=== PATIENT | male | born 1945 | race Hispanic/Latino ===

== ENCOUNTER 2017-08-03 14:27 | Emergency (ER) | payer MEDICARE, OTHER ==
[2017-08-03] MEDS ORDERED: BENZONATATE 100 MG CAPSULE PO ONE (15:05)
[2017-08-03] MEDS ORDERED: ACETAMINOPHEN EXTRA STRENGTH 500 MG TABLET ONE (15:06)
[2017-08-03 15:41] LABS: BASOPHILS % (AUTO) 0.4 % (0.0-5.0); EOSINOPHILS % (AUTO) 0.1 % (0.0-8.0); LYMPHOCYTES % (AUTO) 9.1 % (21.0-51.0); MEAN CORPUSCULAR HEMOGLOBIN 29.6 pg (27.0-33.0); MEAN CORPUSCULAR HGB CONC 33.7 g/dL (32.0-36.0); MONOCYTES % (AUTO) 11.9 % (3.0-13.0); NEUTROPHILS % (AUTO) 78.5 % (40.0-77.0); PLATELET COUNT (AUTO) 218 K/uL (130-400); RED BLOOD CELL COUNT(AUTO) 4.88 MIL/uL (4.50-6.20); RED CELL DISTRIBUTION WIDTH 13.4 % (11.0-15.5); WHITE BLOOD COUNT (AUTO) 8.1 K/uL (4.8-10.8)
[2017-08-03 16:11] LABS: CREATININE 1.2 mg/dL (0.5-1.5); POTASSIUM 3.6 mmol/L (3.5-5.1)
[2017-08-03] MEDS ORDERED: OSELTAMIVIR PHOSPHATE 75 MG CAP ONE (16:18)
== END 2017-08-03 16:46 | disposition home or self-care (01) ==
LOC: EDH 14:27
DX: J10.1 Influenza due to other identified influenza virus with other respiratory manifestations (principal); E11.9 Type 2 diabetes mellitus without complications; E78.5 Hyperlipidemia, unspecified
CPT/HCPCS: 36415; 71045; 80048; 85025; 87804

== ENCOUNTER 2018-07-09 19:20 | Emergency (ER) | payer MEDICARE, OTHER ==
[2018-07-09] MEDS ORDERED: KETOROLAC TROMETHAMINE 30MG/ML ONE (19:47)
[2018-07-09] MEDS ORDERED: DIAZEPAM 5 MG TABLET ONE (19:47)
[2018-07-09 19:50] LABS: BASOPHILS % (AUTO) 0.6 % (0.0-5.0); EOSINOPHILS % (AUTO) 0.7 % (0.0-8.0); HEMATOCRIT 44.7 % (42-54); MEAN CORPUSCULAR HEMOGLOBIN 29.6 pg (27.0-33.0); MEAN CORPUSCULAR HGB CONC 33.3 g/dL (32.0-36.0); MEAN CORPUSCULAR VOLUME 88.8 fL (79-99); MONOCYTES % (AUTO) 8.2 % (3.0-13.0); NEUTROPHILS % (AUTO) 66.5 % (40.0-77.0); NUCLEATED RED BLOOD CELLS 0.1 % (0.0-0.19); PLATELET COUNT (AUTO) 232 K/uL (130-400); RED BLOOD CELL COUNT(AUTO) 5.03 MIL/uL (4.50-6.20); RED CELL DISTRIBUTION WIDTH 13.3 % (11.0-15.5); WHITE BLOOD COUNT (AUTO) 11.4 K/uL (4.8-10.8)
[2018-07-09 20:13] LABS: CREATININE 1.2 mg/dL (0.5-1.5); POTASSIUM 3.8 mmol/L (3.5-5.1)
[2018-07-09 20:19] LABS: ALBUMIN 3.4 g/dL (3.5-5.0); BILIRUBIN,DIRECT 0.1 mg/dL (0.0-0.3); BILIRUBIN,TOTAL 0.4 mg/dL (0.2-1.0); TOTAL PROTEIN, SERUM 7.9 g/dL (6.0-8.3)
[2018-07-09 20:39] LABS: B-TYPE NATRIURETIC PEPTIDE 8 pg/mL (0-100)
== END 2018-07-09 22:06 | disposition home or self-care (01) ==
LOC: EDH 19:20
DX: M25.511 Pain in right shoulder (principal); E78.5 Hyperlipidemia, unspecified; E11.9 Type 2 diabetes mellitus without complications; Z98.890 Other specified postprocedural states
CPT/HCPCS: 36415; 71045; 80048; 80076; 83880; 84484; 85025; 93005; 96372; 99284; J1885 ×2

== ENCOUNTER 2020-06-30 11:03 | Inpatient (IN) | payer OTHER ==
[~2020-06-30] VITALS: Ht 180.3 cm; Wt 103.4 kg
[2020-06-30 11:45] LABS: BASOPHILS % (AUTO) 0.2 % (0.0-5.0); HEMATOCRIT 42.8 % (42-54); MEAN CORPUSCULAR HEMOGLOBIN 29.8 pg (27.0-33.0); MEAN CORPUSCULAR HGB CONC 33.9 g/dL (32.0-36.0); MEAN CORPUSCULAR VOLUME 88.1 fL (79-99); MONOCYTES % (AUTO) 2.9 % (3.0-13.0); NEUTROPHILS % (AUTO) 87.9 % (40.0-77.0); PLATELET COUNT (AUTO) 319 K/uL (130-400); RED BLOOD CELL COUNT(AUTO) 4.86 MIL/uL (4.50-6.20); RED CELL DISTRIBUTION WIDTH 12.6 % (11.0-15.5); WHITE BLOOD COUNT (AUTO) 9.4 K/uL (4.8-10.8)
[2020-06-30 12:07] LABS: ALANINE AMINOTRANSFERASE 25 U/L (12-78); ALBUMIN 2.5 g/dL (3.5-5.0); ASPARTATE AMINOTRANSFERASE 32 U/L (10-37); BILIRUBIN,TOTAL 0.8 mg/dL (0.2-1.0); CARBON DIOXIDE 21 mmol/L (21-32); CHLORIDE 96 mmol/L (101-111); CREATINE KINASE, TOTAL 63 U/L (21-232); CREATININE 1.5 mg/dL (0.5-1.5); GLOMERULAR FILTR. RATE CALC 49 mL/min (>60); LACTATE DEHYDROGENASE 326 U/L (81-234); MYOGLOBIN 125 ng/mL (10-92); POTASSIUM 3.9 mmol/L (3.5-5.1); SODIUM SERUM 136 mmol/L (136-145); TOTAL PROTEIN, SERUM 8.3 g/dL (6.0-8.3); TROPONIN I < 0.04 ng/mL (0.00-0.06); UREA NITROGEN, BLOOD 27 mg/dL (7-18)
[2020-06-30 12:21] LABS: INR 1.14 (0.85-1.15); PROTHROMBIN TIME 12.1 SEC (9.6-11.6)
[2020-06-30 12:22] LABS: PARTIAL THROMBOPLASTIN TIME 30.9 SEC (26.3-35.5)
[2020-06-30 12:33] LABS: GLUCOSE,RANDOM 545 mg/dL (70-105)
[2020-06-30] MEDS ORDERED: CEFTRIAXONE SODIUM 1 GM ONE (12:46)
[2020-06-30] MEDS ORDERED: AZITHROMYCIN 500MG+NS 250ML 250 ML IV ONE (12:46)
[2020-06-30] MEDS ORDERED: SODIUM CHLORIDE 0.9% 1000ML 1,000 ML IV ONE (12:48)
[2020-06-30] MEDS ORDERED: INSULIN HUMULIN R 100 UNIT/ML 3ML ONE (12:49)
[2020-06-30 12:55] LABS: ERYTHROCYTE SEDIMENTATION RATE 103 MM/HR (0-20)
[2020-06-30 13:26] LABS: ABG HCO3 20.9 mmol/L (21.0-28.0); ABG OXYGEN SATURATION 93.2 % (95.0-99.0); ABG PCO2 28 mmHg (35-48)
[2020-06-30 14:08] LABS: APPEARANCE,URINE Clear (CLEAR); BILIRUBIN,URINE Negative (NEGATIVE); COLOR,URINE Yellow (YELLOW); GLUCOSE, URINE (UA) >=1000 mg/dL (NEGATIVE); KETONES,URINE 15 mg/dL (NEGATIVE); LEUKOCYTE ESTERASE ,URINE Negative (NEGATIVE); NITRATE,URINE Negative (NEGATIVE); OCCULT BLOOD,URINE Negative (NEGATIVE); PROTEIN,URINE POS 1+ mg/dL (NEGATIVE)
[2020-06-30 14:20] LABS: BACTERIA,URINE Few /HPF (None Seen); RBC,URINE 0-1 /HPF (0-1); WBC,URINE 0-1 /HPF (0-1)
[2020-06-30 14:21] LABS: SQUAMOUS EPITHELIAL CELL,UR Few /HPF (0-2); YEAST,URINE BUDDING Rare /HPF (None Seen)
[2020-06-30] MEDS ORDERED: ERGOCALCIFEROL (VITAMIN D2) 50,000 UNIT CAPSULE PO ONE (14:45)
[2020-06-30] MEDS: FUROSEMIDE 10 MG/ML 4ML VIAL IVP SCH (14:45)
[2020-06-30] MEDS ORDERED: GLUCAGON 1MG KIT 1 MG ML IM PRN (14:45)
[2020-06-30] MEDS ORDERED: DIAZEPAM 5 MG TABLET PO PRN (14:45)
[2020-06-30] MEDS: DEXAMETHASONE SOD PHOSPHATE 4 MG/ML 1ML VIAL IVP SCH (14:45)
[2020-06-30] MEDS: CEFTRIAXONE SODIUM 1 GM IVP SCH (14:45)
[2020-06-30] MEDS ORDERED: ONDANSETRON HCL 4 MG/2 ML VIAL IVP PRN (14:45)
[2020-06-30] MEDS ORDERED: ALBUTEROL INHALER 90MCG/INH IH PRN (14:45)
[2020-06-30] MEDS ORDERED: HYDRALAZINE HCL 20 MG/ML VIAL IV PRN (14:45)
[2020-06-30] MEDS ORDERED: DEXTROSE 50%-WATER 50 ML DISP.SYRIN IV PRN (14:45)
[2020-06-30] MEDS ORDERED: MAGNESIUM 2GM PREMIX 50ML 50 ML IV PRN (14:45)
[2020-06-30] MEDS ORDERED: ACETAMINOPHEN 325 MG TAB PO PRN (14:45)
[2020-06-30] MEDS: DOXYCYCLINE 100MG+NS 250ML IV SCH (14:45)
[2020-06-30] MEDS ORDERED: PHARMACY COMMUNICATION**REMDESIVIR ORDER MISC SCH (15:00)
[2020-06-30] MEDS: INSULIN HUMULIN R 100 UNIT/ML 3ML SQ SCH ×2 (16:30→21:00)
[2020-06-30] MEDS: ENOXAPARIN SODIUM 100 MG/1 ML SQ SCH (21:00)
[2020-06-30] MEDS ORDERED: ENOXAPARIN SODIUM 120 MG/0.8ML SQ ONE (21:02)
[2020-06-30] MEDS ORDERED: FAMOTIDINE/PF 20 MG/2 ML VIAL IV ONE (21:48)
[2020-07-01] MEDS: CEFTRIAXONE SODIUM 1 GM IVP SCH ×2 (02:45→14:45)
[2020-07-01] MEDS: FUROSEMIDE 10 MG/ML 4ML VIAL IVP SCH ×2 (02:45→14:45)
[2020-07-01] MEDS: DOXYCYCLINE 100MG+NS 250ML IV SCH ×2 (02:45→14:45)
[2020-07-01 04:10] LABS: ABG BASE EXCESS 0.3 mmol/L (-2.0-3.0); ABG HCO3 23.8 mmol/L (21.0-28.0); ABG OXYGEN SATURATION 94.9 % (95.0-99.0); ABG PCO2 35 mmHg (35-48)
[2020-07-01 04:19] LABS: BASOPHILS % (AUTO) 0.2 % (0.0-5.0); EOSINOPHILS % (AUTO) 0.1 % (0.0-8.0); LYMPHOCYTES % (AUTO) 16.4 % (21.0-51.0); MEAN CORPUSCULAR HEMOGLOBIN 29.2 pg (27.0-33.0); MEAN CORPUSCULAR HGB CONC 32.9 g/dL (32.0-36.0); MEAN CORPUSCULAR VOLUME 88.8 fL (79-99); MONOCYTES % (AUTO) 6.8 % (3.0-13.0); NEUTROPHILS % (AUTO) 75.5 % (40.0-77.0); PLATELET COUNT (AUTO) 299 K/uL (130-400); RED BLOOD CELL COUNT(AUTO) 4.28 MIL/uL (4.50-6.20); RED CELL DISTRIBUTION WIDTH 12.8 % (11.0-15.5); WHITE BLOOD COUNT (AUTO) 9.9 K/uL (4.8-10.8)
[2020-07-01 04:41] LABS: ALBUMIN 2.4 g/dL (3.5-5.0); BILIRUBIN,TOTAL 0.5 mg/dL (0.2-1.0); CREATININE 1.1 mg/dL (0.5-1.5); MAGNESIUM 2.5 mg/dL (1.80-2.40); PHOSPHORUS 2.9 mg/dL (2.5-4.9); POTASSIUM 3.6 mmol/L (3.5-5.1); TOTAL PROTEIN, SERUM 6.4 g/dL (6.0-8.3)
[2020-07-01] MEDS: INSULIN HUMULIN R 100 UNIT/ML 3ML SQ SCH ×3 (07:30→16:30)
[2020-07-01] MEDS ORDERED: FAMOTIDINE 20MG TAB 20 MG TAB ONE (07:48)
[2020-07-01] MEDS ORDERED: ASPIRIN 81MG TAB.CHEW ONE (07:48)
[2020-07-01] MEDS ORDERED: ASCORBIC ACID 500 MG TAB ONE (07:48)
[2020-07-01] MEDS ORDERED: ENOXAPARIN SODIUM 100 MG/1 ML SQ ONE (07:48)
[2020-07-01] MEDS ORDERED: ZINC SULFATE 220 CAPSULE ONE (07:49)
[2020-07-01] MEDS ORDERED: INSULIN HUMULIN R 100 UNIT/ML 3ML ONE ×3 (07:49→18:05)
[2020-07-01] MEDS: ASPIRIN 81MG TAB.CHEW PO SCH (09:00)
[2020-07-01] MEDS: FAMOTIDINE 20MG TAB 20 MG TAB PO SCH (09:00)
[2020-07-01] MEDS: ZINC SULFATE 220 CAPSULE PO SCH (09:00)
[2020-07-01] MEDS: ENOXAPARIN SODIUM 100 MG/1 ML SQ SCH (09:00)
[2020-07-01] MEDS: ASCORBIC ACID 500 MG TAB PO SCH (09:00)
[2020-07-01] MEDS ORDERED: IOHEXOL-350 75 ML VIAL IV ONE (10:26)
[2020-07-01] MEDS ORDERED: INSULIN GLARGINE 100 UNITS/ML 10 ML VIAL SQ SCH (12:30)
[2020-07-01] MEDS ORDERED: COMPOUND IV REFRIGERATED 1 EACH IVSOLN MISC PRN (12:45)
[2020-07-01] MEDS ORDERED: REMDESIVIR (EUA) 520 200 MG in SODIUM CHLORIDE 0.9% 250 ML IV ONE (12:45)
[2020-07-01] MEDS ORDERED: CEFTRIAXONE SODIUM 1 GM ONE (14:06)
[2020-07-01] MEDS ORDERED: DEXAMETHASONE SOD PHOSPHATE 10MG/ML 1ML VIAL ONE (14:09)
[2020-07-01] MEDS ORDERED: DOXYCYCLINE 100MG+NS 250ML 250 ML IV ONE (14:16)
[2020-07-01] MEDS: DEXAMETHASONE SOD PHOSPHATE 4 MG/ML 1ML VIAL IVP SCH (14:45)
[2020-07-01] MEDS ORDERED: FUROSEMIDE 10 MG/ML 4ML VIAL ONE (16:17)
[2020-07-01 21:42] VITALS: BP 141/53
[2020-07-02] VITALS (7 sets, daily range): BP systolic 106–113; BP diastolic 56–69
[2020-07-02] MEDS: ENOXAPARIN SODIUM 100 MG/1 ML SQ SCH ×3 (00:42→22:03)
[2020-07-02] MEDS: INSULIN HUMULIN R 100 UNIT/ML 3ML SQ SCH ×5 (00:44→22:06)
[2020-07-02] MEDS: CEFTRIAXONE SODIUM 1 GM IVP SCH ×2 (03:21→14:33)
[2020-07-02] MEDS: FUROSEMIDE 10 MG/ML 4ML VIAL IVP SCH ×2 (03:24→14:34)
[2020-07-02] MEDS: DOXYCYCLINE 100MG+NS 250ML IV SCH (03:27)
[2020-07-02 05:17] LABS: BASOPHILS % (AUTO) 0.3 % (0.0-5.0); HEMATOCRIT 39.3 % (42-54); LYMPHOCYTES % (AUTO) 14.2 % (21.0-51.0); MEAN CORPUSCULAR HEMOGLOBIN 30.3 pg (27.0-33.0); MEAN CORPUSCULAR HGB CONC 33.6 g/dL (32.0-36.0); MEAN CORPUSCULAR VOLUME 90.1 fL (79-99); MONOCYTES % (AUTO) 4.5 % (3.0-13.0); NEUTROPHILS % (AUTO) 79.8 % (40.0-77.0); PLATELET COUNT (AUTO) 350 K/uL (130-400); RED BLOOD CELL COUNT(AUTO) 4.36 MIL/uL (4.50-6.20); RED CELL DISTRIBUTION WIDTH 12.6 % (11.0-15.5); WHITE BLOOD COUNT (AUTO) 6.9 K/uL (4.8-10.8)
[2020-07-02 05:33] LABS: ALBUMIN 2.5 g/dL (3.5-5.0); BILIRUBIN,TOTAL 0.4 mg/dL (0.2-1.0); MAGNESIUM 2.2 mg/dL (1.80-2.40); PHOSPHORUS 3.5 mg/dL (2.5-4.9); POTASSIUM 3.4 mmol/L (3.5-5.1); TOTAL PROTEIN, SERUM 7.6 g/dL (6.0-8.3)
[2020-07-02] MEDS: PHARMACY COMMUNICATION MISC SCH (06:00)
[2020-07-02] MEDS ORDERED: LIDOCAINE HCL-MPF 1% 2ML VIAL IV PRN (06:30)
[2020-07-02] MEDS ORDERED: POTASSIUM CHLORIDE 20MEQ/100ML 100 ML IV PRN (06:30)
[2020-07-02] MEDS: ASPIRIN 81MG TAB.CHEW PO SCH (08:41)
[2020-07-02] MEDS: FAMOTIDINE 20MG TAB 20 MG TAB PO SCH (08:41)
[2020-07-02] MEDS: ASCORBIC ACID 500 MG TAB PO SCH (08:41)
[2020-07-02] MEDS: ZINC SULFATE 220 CAPSULE PO SCH (08:41)
[2020-07-02] MEDS: INSULIN GLARGINE 100 UNITS/ML 10 ML VIAL SQ SCH (08:54)
[2020-07-02] MEDS: REMDESIVIR (EUA) 520 100 MG in SODIUM CHLORIDE 0.9% 250 ML IV SCH (14:33)
[2020-07-02] MEDS: DEXAMETHASONE SOD PHOSPHATE 4 MG/ML 1ML VIAL IVP SCH (14:34)
[2020-07-02] MEDS: POTASSIUM CHLORIDE 20 MEQ ERTAB PO PRN (14:39)
[2020-07-02] MEDS: DOXYCYCLINE 100MG+NS 250ML 250 ML IV SCH (18:30)
[2020-07-03] MEDS: FUROSEMIDE 10 MG/ML 4ML VIAL IVP SCH ×2 (02:52→15:01)
[2020-07-03] MEDS: CEFTRIAXONE SODIUM 1 GM IVP SCH ×2 (02:53→15:00)
[2020-07-03 03:00] VITALS: BP 115/70
[2020-07-03 03:17] LABS: ABG BASE EXCESS 2.7 mmol/L (-2.0-3.0); ABG HCO3 26.5 mmol/L (21.0-28.0); ABG OXYGEN SATURATION 96.7 % (95.0-99.0); ABG PCO2 38 mmHg (35-48)
[2020-07-03] MEDS: DOXYCYCLINE 100MG+NS 250ML 250 ML IV SCH ×2 (05:51→17:43)
[2020-07-03 05:59] LABS: HEMATOCRIT 41.9 % (42-54); MEAN CORPUSCULAR HEMOGLOBIN 29.4 pg (27.0-33.0); MEAN CORPUSCULAR HGB CONC 33.2 g/dL (32.0-36.0); MEAN CORPUSCULAR VOLUME 88.8 fL (79-99); RED BLOOD CELL COUNT(AUTO) 4.72 MIL/uL (4.50-6.20); RED CELL DISTRIBUTION WIDTH 12.4 % (11.0-15.5); WHITE BLOOD COUNT (AUTO) 9.4 K/uL (4.8-10.8)
[2020-07-03 06:26] LABS: ALBUMIN 2.6 g/dL (3.5-5.0); BILIRUBIN,DIRECT 0.1 mg/dL (0.0-0.3); BILIRUBIN,TOTAL 0.4 mg/dL (0.2-1.0); MAGNESIUM 2.1 mg/dL (1.80-2.40); PHOSPHORUS 3.8 mg/dL (2.5-4.9); POTASSIUM 3.2 mmol/L (3.5-5.1); TOTAL PROTEIN, SERUM 7.8 g/dL (6.0-8.3)
[2020-07-03] MEDS: POTASSIUM CHLORIDE 20 MEQ ERTAB PO PRN ×3 (06:59→15:15)
[2020-07-03 07:00] VITALS: BP 110/71
[2020-07-03] MEDS: INSULIN HUMULIN R 100 UNIT/ML 3ML SQ SCH ×4 (07:01→21:36)
[2020-07-03] MEDS: PHARMACY COMMUNICATION MISC SCH (08:00)
[2020-07-03] MEDS: ASCORBIC ACID 500 MG TAB PO SCH (09:46)
[2020-07-03] MEDS: FAMOTIDINE 20MG TAB 20 MG TAB PO SCH (09:47)
[2020-07-03] MEDS: ASPIRIN 81MG TAB.CHEW PO SCH (09:47)
[2020-07-03] MEDS: ZINC SULFATE 220 CAPSULE PO SCH (09:47)
[2020-07-03] MEDS: ENOXAPARIN SODIUM 100 MG/1 ML SQ SCH ×2 (09:48→21:34)
[2020-07-03] MEDS: INSULIN GLARGINE 100 UNITS/ML 10 ML VIAL SQ SCH (09:50)
[2020-07-03 11:00] VITALS: BP 108/68
[2020-07-03] MEDS: REMDESIVIR (EUA) 520 100 MG in SODIUM CHLORIDE 0.9% 250 ML IV SCH (13:13)
[2020-07-03] MEDS: DEXAMETHASONE SOD PHOSPHATE 4 MG/ML 1ML VIAL IVP SCH (15:01)
[2020-07-03 16:00] VITALS: BP 122/69
[2020-07-03 19:24] VITALS: BP 112/65
[2020-07-03 22:59] VITALS: BP 118/59
[2020-07-04] MEDS: FUROSEMIDE 10 MG/ML 4ML VIAL IVP SCH ×2 (02:53→14:14)
[2020-07-04] MEDS: CEFTRIAXONE SODIUM 1 GM IVP SCH ×2 (02:53→14:20)
[2020-07-04 03:42] VITALS: BP 116/68
[2020-07-04] MEDS: PHARMACY COMMUNICATION MISC SCH (06:00)
[2020-07-04] MEDS: DOXYCYCLINE 100MG+NS 250ML 250 ML IV SCH ×2 (06:03→18:39)
[2020-07-04 06:22] LABS: BASOPHILS % (AUTO) 0.3 % (0.0-5.0); EOSINOPHILS % (AUTO) 0.2 % (0.0-8.0); LYMPHOCYTES % (AUTO) 12.2 % (21.0-51.0); MEAN CORPUSCULAR HEMOGLOBIN 29.5 pg (27.0-33.0); MEAN CORPUSCULAR HGB CONC 33.3 g/dL (32.0-36.0); MEAN CORPUSCULAR VOLUME 88.6 fL (79-99); MONOCYTES % (AUTO) 6.1 % (3.0-13.0); NEUTROPHILS % (AUTO) 79.2 % (40.0-77.0); PLATELET COUNT (AUTO) 431 K/uL (130-400); RED BLOOD CELL COUNT(AUTO) 5.08 MIL/uL (4.50-6.20); RED CELL DISTRIBUTION WIDTH 12.6 % (11.0-15.5); WHITE BLOOD COUNT (AUTO) 11.7 K/uL (4.8-10.8)
[2020-07-04 06:42] LABS: ALBUMIN 2.6 g/dL (3.5-5.0); BILIRUBIN,DIRECT 0.1 mg/dL (0.0-0.3); BILIRUBIN,TOTAL 0.4 mg/dL (0.2-1.0)
[2020-07-04 06:44] LABS: POTASSIUM 3.6 mmol/L (3.5-5.1); TOTAL PROTEIN, SERUM 7.4 g/dL (6.0-8.3)
[2020-07-04] MEDS: INSULIN HUMULIN R 100 UNIT/ML 3ML SQ SCH ×4 (07:17→20:49)
[2020-07-04] MEDS: POTASSIUM CHLORIDE 20 MEQ ERTAB PO PRN (07:20)
[2020-07-04 08:30] VITALS: BP 111/66
[2020-07-04] MEDS: FAMOTIDINE 20MG TAB 20 MG TAB PO SCH (09:24)
[2020-07-04] MEDS: ASCORBIC ACID 500 MG TAB PO SCH (09:24)
[2020-07-04] MEDS: ASPIRIN 81MG TAB.CHEW PO SCH (09:24)
[2020-07-04] MEDS: ZINC SULFATE 220 CAPSULE PO SCH (09:24)
[2020-07-04] MEDS: ENOXAPARIN SODIUM 100 MG/1 ML SQ SCH ×2 (09:26→20:47)
[2020-07-04] MEDS: INSULIN GLARGINE 100 UNITS/ML 10 ML VIAL SQ SCH (09:31)
[2020-07-04 12:49] VITALS: BP 111/66
[2020-07-04] MEDS: DEXAMETHASONE SOD PHOSPHATE 4 MG/ML 1ML VIAL IVP SCH (14:13)
[2020-07-04] MEDS: REMDESIVIR (EUA) 520 100 MG in SODIUM CHLORIDE 0.9% 250 ML IV SCH (14:20)
[2020-07-04 16:30] VITALS: BP 105/64
[2020-07-04 20:08] VITALS: BP 115/69
[2020-07-05 00:17] VITALS: BP 105/55
[2020-07-05] MEDS: FUROSEMIDE 10 MG/ML 4ML VIAL IVP SCH ×2 (01:54→14:45)
[2020-07-05] MEDS: CEFTRIAXONE SODIUM 1 GM IVP SCH ×2 (01:55→14:45)
[2020-07-05 04:00] VITALS: BP 111/72
[2020-07-05] MEDS: DOXYCYCLINE 100MG+NS 250ML 250 ML IV SCH (06:31)
[2020-07-05] MEDS: INSULIN HUMULIN R 100 UNIT/ML 3ML SQ SCH ×2 (07:30→12:37)
[2020-07-05 09:06] VITALS: BP 114/67
[2020-07-05] MEDS: ZINC SULFATE 220 CAPSULE PO SCH (09:17)
[2020-07-05] MEDS: FAMOTIDINE 20MG TAB 20 MG TAB PO SCH (09:17)
[2020-07-05] MEDS: ASCORBIC ACID 500 MG TAB PO SCH (09:17)
[2020-07-05] MEDS: ASPIRIN 81MG TAB.CHEW PO SCH (09:18)
[2020-07-05] MEDS: ENOXAPARIN SODIUM 100 MG/1 ML SQ SCH (09:18)
[2020-07-05] MEDS: INSULIN GLARGINE 100 UNITS/ML 10 ML VIAL SQ SCH (09:20)
[2020-07-05] MEDS ORDERED: DEXA6TAB PO (12:39)
[2020-07-05] MEDS ORDERED: DOXY100C2 PO (12:39)
[2020-07-05 12:41] VITALS: BP 111/57
[2020-07-05] MEDS ORDERED: ASPI-1005 PO (12:43)
[2020-07-05] MEDS ORDERED: ZINC220C6 PO (12:45)
[2020-07-05] MEDS: REMDESIVIR (EUA) 520 100 MG in SODIUM CHLORIDE 0.9% 250 ML IV SCH (13:06)
[2020-07-05 14:34] LABS: ABG BASE EXCESS -0.3 mmol/L (-2.0-3.0); ABG HCO3 22.8 mmol/L (21.0-28.0); ABG OXYGEN SATURATION 90.9 % (95.0-99.0); ABG PCO2 33 mmHg (35-48)
[2020-07-05] MEDS: DEXAMETHASONE SOD PHOSPHATE 4 MG/ML 1ML VIAL IVP SCH (15:30)
== END 2020-07-05 16:10 | disposition home or self-care (01) | DRG 177 ==
LOC: EDH 11:03 → EDHIP 14:31 → 2DH 07-01 20:50
PROVIDERS: ADMIT Internal Medicine; ATTEND Internal Medicine
PROC: XW13325 Transfusion of Convalescent Plasma (Nonautologous) into Peripheral Vein, Percutaneous Approach, New Technology Group 5 (ICD-10-PCS; principal; 2020-06-30)
PROC: XW033E5 Introduction of Remdesivir Anti-infective into Peripheral Vein, Percutaneous Approach, New Technology Group 5 (ICD-10-PCS; 2020-07-01)
DX: U07.1 COVID-19 (principal); J96.01 Acute respiratory failure with hypoxia; J12.89 Other viral pneumonia; E66.01 Morbid (severe) obesity due to excess calories; E11.65 Type 2 diabetes mellitus with hyperglycemia; E78.5 Hyperlipidemia, unspecified; Z79.4 Long term (current) use of insulin; Z79.899 Other long term (current) drug therapy; Z89.611 Acquired absence of right leg above knee; Z68.31 Body mass index [BMI] 31.0-31.9, adult; Z90.49 Acquired absence of other specified parts of digestive tract
CPT/HCPCS: 36415; 36600; 71045; 71275; 80053; 80076; 81001; 82550; 82728; 82803; 82948; 83605; 83615; 83735; 83874; 83880; 84100; 84145; 84484; 85025; 85027; 85378; 85610; 85651; 85730; 86140; 86900; 86901; 86927; 87040; 87088; 87426; 93005; 93970; G0378; J0456; J0696; J1100; J1650; J1815; J1940; J3490; J7030; J7050; Q9967